=== PATIENT | female | born 1965 | race Caucasian/White ===

== ENCOUNTER 2023-08-23 09:31 | Outpatient (OUT) | payer BC, SELFPAY ==
[2023-08-23 10:44] LABS: Chol HDL Ratio 3.4; Cholesterol 215 mg/dL (<=200); HDL Cholesterol 63 mg/dL (40-60); TSH W/ REFLEX FT4 1.179 uIU/mL (0.358-3.740); Triglycerides 63 mg/dL (<=150); VLDL CHOLESTEROL 12.6 mg/dL
== END 2023-08-23 09:32 | disposition home or self-care (01) ==
LOC: LAB 09:31
PROVIDERS: PCP Family Medicine; Visit Provider Family Medicine
DX: Z00.00 Encounter for general adult medical examination without abnormal findings (principal); Z12.31 Encounter for screening mammogram for malignant neoplasm of breast; Z80.41 Family history of malignant neoplasm of ovary; M85.89 Other specified disorders of bone density and structure, multiple sites
CPT/HCPCS: 36415; 77063; 77067; 80061; 82306; 82310; 82565; 84443

== ENCOUNTER 2023-08-23 09:31 | Outpatient (OUT) | payer BC, SELFPAY ==
--- NOTE | 2023-08-23 09:53 | MM_ITS ---
Patient Name: GONSALO BENTON MR#: [id number] : 1965 Exam Date: 08/23/2023 Ordering Doctor: Non-Staff Physician RADIOLOGY REPORT PROCEDURE: MM TOMOSYNTHESIS SCREENING BI COMPARISON: MG MAMM SCREEN AFSHIN W CAD, 01/11/2020. MG MAMM SCREEN 3D AFSHIN CAD, 08/03/2022. INDICATIONS: screening Calculator Name NCI Breast Cancer Risk Assessment Tool 5 Year Breast Cancer Risk 1.50% Lifetime Breast Cancer Risk 8.30% Personal Breast Cancer No Personal Ovarian Cancer No Treatments None Family Cancers Mother with ovar cancer at age ~42; Sister with ovarian cancer at age 40. LOCATION: [facility] BREAST COMPOSITION: Scattered areas fibroglandular density. FINDINGS: DIAGNOSTIC CATEGORY 2--BENIGN FINDING. NO CHANGE FROM COMPARISON. Scattered benign-appearing calcifications are present. Scattered benign-appearing nodules are present. RIGHT BREAST: No significant suspicious finding. LEFT BREAST: No significant suspicious finding. RECOMMENDATIONS: ROUTINE MAMMOGRAM AND CLINICAL EVALUATION IN 12 MONTHS. PLEASE NOTE: A NORMAL MAMMOGRAM DOES NOT EXCLUDE THE POSSIBILITY OF BREAST CANCER. A CLINICALLY SUSPICIOUS PALPABLE LUMP SHOULD BE BIOPSIED. Dictated by: Chacorta Mcintyre MD on 08/23/2023 at 12:19 Approved by: Chacorta Mcintyre MD on 08/23/2023 at 12:21
[2023-08-23 10:29] LABS: Calcium 9.5 mg/dL (8.5-10.1); Estimated GFR (African America >60 (>=60); Estimated GFR (Non-African Ame >60 (>=60)
== END 2023-08-23 09:32 | disposition home or self-care (01) ==
LOC: LAB 09:31
PROVIDERS: PCP Family Medicine
DX: Z12.31 Encounter for screening mammogram for malignant neoplasm of breast (principal); Z80.41 Family history of malignant neoplasm of ovary; M85.89 Other specified disorders of bone density and structure, multiple sites
CPT/HCPCS: 36415; 77063; 77067; 82306; 82310; 82565

== ENCOUNTER 2024-08-29 10:40 | Outpatient (OUT) | payer BC, SELFPAY ==
--- NOTE | 2024-08-29 10:46 | MM_ITS ---
Patient Name: GONSALO BENTON MR#: [id number] : 1965 Exam Date: 08/29/2024 Ordering Doctor: DR KARISHMA ARAMBULA M.D. RADIOLOGY REPORT PROCEDURE: MM TOMOSYNTHESIS SCREENING BI COMPARISON: MM TOMOSYNTHESIS SCREENING BI, 08/23/2023. MG MAMM SCREEN 3D AFSHIN CAD, 08/03/2022. MG MAMM SCREEN AFSHIN W CAD, 01/11/2020. MG MAMM AFSHIN SCRN W CAD DIG, 05/23/2013. INDICATIONS: Screening Calculator Name NCI Breast Cancer Risk Assessment Tool 5 Year Breast Cancer Risk 1.60% Lifetime Breast Cancer Risk 8.10% Personal Breast Cancer No Personal Ovarian Cancer No Treatments None Family Cancers Mother with ovar cancer at age ~42; Sister with ovarian cancer at age 40. LOCATION: [facility] BREAST COMPOSITION: There are scattered areas of fibroglandular density. FINDINGS: RIGHT BREAST: No significant suspicious finding. LEFT BREAST: No significant suspicious finding. DIAGNOSTIC CATEGORY 1--NEGATIVE. RECOMMENDATIONS: ROUTINE MAMMOGRAM AND CLINICAL EVALUATION IN 12 MONTHS. PLEASE NOTE: A NORMAL MAMMOGRAM DOES NOT EXCLUDE THE POSSIBILITY OF BREAST CANCER. A CLINICALLY SUSPICIOUS PALPABLE LUMP SHOULD BE BIOPSIED. Dictated by: Deandre Gimneez DO on 08/30/2024 at 08:08 Approved by: Deandre Gimenez DO on 08/30/2024 at 08:10
== END 2024-08-29 10:41 | disposition home or self-care (01) ==
LOC: MAMMO 10:41
PROVIDERS: PCP Family Medicine; Visit Provider Obstetrics & Gynecology
DX: Z12.31 Encounter for screening mammogram for malignant neoplasm of breast (principal); Z80.41 Family history of malignant neoplasm of ovary
CPT/HCPCS: 77063; 77067